=== PATIENT | female | born 1965 | race Two or more races ===

== ENCOUNTER 2017-03-25 19:50 | Emergency (ER) | payer MEDICAID ==
[~2017-03-25] VITALS: Ht 157.5 cm; Wt 92.1 kg
[2017-03-25 21:22] LABS: Basophils # (auto) 0.1 uL; Basophils % (auto) 0.9 % (0.0-2.0); Eosinophils # (auto) 0.1 uL; Hematocrit 41.9 % (36.0-46.0); Hemoglobin 14.2 g/dL (12.2-16.2); Lymphocytes # (auto) 1.5 uL; Mean Corpuscular Hemoglobin 29.7 pg (28.0-32.0); Mean Corpuscular Hgb Conc. 33.9 g/dL (32.0-36.0); Mean Corpuscular Volume 87.6 fL (80.0-100.0); Monocytes # (auto) 0.6 uL; Monocytes % (auto) 5.8 % (0.0-12.0); Neutrophils # (auto) 7.8 uL; Neutrophils % (auto) 77.3 % (37.0-80.0); Nucleated Red Blood Cells % 0.1 %; Platelet Count (auto) 311 10^3/uL (140-450); Red Cell Distribution Width 13.9 % (11.8-14.3); White Blood Cell 10.1 10^3/uL (4.4-10.8)
[2017-03-25 21:49] LABS: BUN/Creatinine Ratio 12.1; Calcium 10.3 mg/dL (8.5-10.1); Potassium 3.8 mmol/L (3.5-5.1)
[2017-03-25 21:52] LABS: Bilirubin, Total 0.2 mg/dL (0.2-1.0); Total Protein 8.5 g/dL (6.4-8.2)
[2017-03-25 23:09] LABS: Urine Bilirubin Negative (Negative); Urine Blood 1+ /uL (Negative); Urine Ca Oxalate Crystal FEW (None Seen); Urine Color Yellow (Yellow); Urine Glucose Normal (Normal); Urine Ketone Negative (Negative); Urine Mucus FEW (None Seen); Urine Nitrite Negative (Negative); Urine RBC 1 /hpf (0 - 4); Urine Squamous Epithelial Cell FEW /hpf (<5); Urine Urobilinogen Normal (Negative); Urine pH 5.5 (5.0-8.0)
[2017-03-26] MEDS ORDERED: ONDANSETRON HCL 4 MG/2 ML VIAL IV ONE (01:15)
[2017-03-26] MEDS ORDERED: MORPHINE SULF INJ 2 MG/ML SYRINGE 1ML IV ONE (01:15)
[2017-03-26 03:47] VITALS: BP 140/90
== END 2017-03-26 04:10 | disposition home or self-care (01) ==
LOC: ER 19:50
DX: S33.5XXA Sprain of ligaments of lumbar spine, initial encounter (principal); M79.1 Myalgia; I10 Essential (primary) hypertension; Z91.041 Radiographic dye allergy status; X58.XXXA Exposure to other specified factors, initial encounter; Y93.89 Activity, other specified; Y99.8 Other external cause status; Y92.89 Other specified places as the place of occurrence of the external cause
CPT/HCPCS: 36415; 74176; 80053; 81001; 81025; 85025; 96374; 96375; 99285; J2270; J2405

== ENCOUNTER 2017-12-15 17:27 | Emergency (ER) | payer MEDICAID ==
[~2017-12-15] VITALS: Ht 154.9 cm; Wt 89.8 kg
[2017-12-15 18:22] LABS: Urine Bacteria FEW /hpf (None Seen); Urine Blood Negative /uL (Negative); Urine Mucus FEW (None Seen); Urine Specific Gravity 1.019 (1.001-1.035); Urine WBC 5 /hpf (0 - 5)
[2017-12-15 19:03] LABS: Basophils # (auto) 0.1 uL; Basophils % (auto) 0.7 % (0.0-2.0); Eosinophils # (auto) 0.2 uL; Eosinophils % (auto) 2.6 % (0.0-7.0); Hematocrit 42.9 % (36.0-46.0); Hemoglobin 14.1 g/dL (12.2-16.2); Lymphocytes # (auto) 2.3 uL; Lymphocytes % (auto) 26.9 % (10.0-50.0); Mean Corpuscular Hemoglobin 29.4 pg (28.0-32.0); Mean Corpuscular Hgb Conc. 32.9 g/dL (32.0-36.0); Mean Corpuscular Volume 89.4 fL (80.0-100.0); Monocytes # (auto) 0.3 uL; Monocytes % (auto) 3.7 % (0.0-12.0); Neutrophils # (auto) 5.7 uL; Neutrophils % (auto) 66.1 % (37.0-80.0); Platelet Count (auto) 332 10^3/uL (140-450); Red Blood Cells 4.79 10^6/uL (4.0-5.20); Red Cell Distribution Width 14.3 % (11.8-14.3); White Blood Cell 8.7 10^3/uL (4.4-10.8)
[2017-12-15 19:22] LABS: INR 0.91 (0.9-1.15); Partial Thromboplastin Time 27.9 sec (23.78-33.04); Prothrombin Time 9.8 sec (9.27-12.13)
[2017-12-15 19:24] LABS: Alanine Aminotransferase 45 U/L (13-56); Albumin 3.9 g/dL (3.4-5.0); Alkaline Phosphatase 137 U/L (45-117); Anion Gap 7 (5-15); Aspartate Aminotransferase 20 U/L (15-37); Bilirubin, Total 0.3 mg/dL (0.2-1.0); Blood Urea Nitrogen 12 mg/dL (7-18); Carbon Dioxide 25 mmol/L (21-32); Chloride 108 mmol/L (98-107); GFR African American 75 mL/min; GFR Non-African American 62 mL/min; Glucose 85 mg/dL (74-106); Magnesium 2.8 mg/dL (1.6-2.6); Sodium 140 mmol/L (136-145); Total Protein 8.3 g/dL (6.4-8.2)
[2017-12-15] MEDS ORDERED: cefTRIAXone SOD 1,000 MG VL IM ONE (21:30)
[2017-12-15 21:50] VITALS: BP 166/78
== END 2017-12-15 21:59 | disposition home or self-care (01) ==
LOC: ER 17:27
DX: N39.0 Urinary tract infection, site not specified (principal); K59.00 Constipation, unspecified; Z91.041 Radiographic dye allergy status
CPT/HCPCS: 36415; 71046; 80053; 81001; 81025; 83735; 83880; 84484; 85025; 85610; 85730; 93005; 96372; 99285; J0696

== ENCOUNTER 2025-04-15 13:28 | Emergency (ER) | payer MEDICAID ==
[~2025-04-15] VITALS: Ht 157.5 cm; Wt 94.8 kg
--- NOTE | 2025-04-15 14:56 | ED.PDOC ---
History of Present Illness HPI Comments 59-year-old female presents to the ER in a wheelchair being pushed by son and daughter with prior medical history of hypertension: Surgical history of right shoulder surgery and a chief complaint of a fall injury. Patient reports on standing on a step stool and as she was trying to get off she twisted her ankle, causing her to fall back and landing on the cervical, thoracic region of the back. Patient is currently complaining of upper back pain and dyspnea. Denies any other symptoms at this time. Denies chills, fever, N/V/D, SOB, CP. No other associated symptoms, modifiers, recent injuries or sick contacts present at this time. Chief Complaint: Fall Injury Time Seen by MD: 14:25 Primary Care Provider: NONE Reviewed Notes: Nurses Notes, Medications, Allergies Allergies: Coded Allergies: Iodine (Verified Adverse Reaction, Severe, 01/27/13) Home Meds No Active Prescriptions or Reported Meds Information Source: Patient, Relative (Child) Mode of Arrival: Wheelchair Severity: Moderate Timing: Minutes Duration: Since onset, Minutes Prehospital treatment: None Past Medical History PAST MEDICAL HISTORY: HTN FLAP LINING BINDER History: No Pertinent FLAP LINING BINDER History Family History Family History: Reviewed,noncontributory to illness, Unknown Social History Smoker: Non-Smoker Alcohol: Denies ETOH Use Drugs: Denies Drug Use Lives In: Home Constitutional: denies: chills, diaphoresis, fatigue, fever, malaise, sweats, weakness, others EENTM: denies: blurred vision, double vision, ear bleeding, ear discharge, ear drainage, ear pain, ear ringing, eye pain, eye redness, hearing loss, mouth pain, mouth swelling, nasal discharge, nose bleeding, nose congestion, nose pain, photophobia, tearing, throat pain, throat swelling, voice changes, others Respiratory: denies: cough, hemoptysis, orthopnea, SOB at rest, shortness of breath, SOB with excertion, stridor, wheezing, others Cardiovascular: denies: chest pain, dizzy spells, diaphoresis, Dyspnea on exertion, edema, irregular heart beat, left arm pain, lightheadedness, palpitations, PND, syncope, others Gastrointestinal: denies: abdomen distended, abdominal pain, blood streaked bowels, constipated, diarrhea, dysphagia, difficulty swallowing, hematemesis, melena, nausea, poor appetite, poor fluid intake, rectal bleeding, rectal pain, vomiting, others Genitourinary: denies: abnormal vagina bleeding, burning, dyspareunia, dysuria, flank pain, frequency, hematuria, incontinence, pain, , vagina discharge, urgency, others Neurological: denies: dizziness, fainting, headache, left sided numbness, left sided weakness, numbness, paresthesia, pre-existing deficit, right sided numbnes s, right sided weakness, seizure, speech problems, tingling, tremors, weakness, others Musculoskeletal: reports: back pain; denies: gout, joint pain, joint swelling, muscle pain, muscle stiffness, neck pain, others Integumetry: denies: bruises, change in color, change in hair/nails, dryness, laceration, lesions, lumps, rash, wounds, others Allergic/Immunocompromised: denies: Difficulty Healing, Frequent Infections, Hives, Itching, others Hematologic/Lymphatic: denies: anemia, blood clots, easy bleeding, easy bruising, swollen glands, others Endocrine: denies: excessive hunger, excessive sweating, excessive thirst, excessive urination, flushing, intolerance to cold, intolerance to heat, unexplained weight gain, unexplained weight loss, others Psychiatric: denies: anxiety, bipolar disorder, depression, hopeless, panic disorder, schizophrenia, sleepless, suicidal, others All Other Systems: Reviewed and Negative Physical Exam General Appearance: Moderate Distress, Normal HEENT: Normal ENT Inspection, Pharynx Normal, TMs Normal Neck: Full Range of Motion, Non-Tender, Normal, Normal Inspection Respiratory: Chest Non-Tender, Lungs Clear, No Accessory Muscle Use, No Respiratory Distress, Normal Breath Sounds Cardiovascular: No Edema, No JVD, No Murmur, No Gallop, Normal Peripheral Pulses, Regular Rate/Rhythm Breast Exam: Deferred Gastrointestinal: No Organomegaly, Non Tender, No Pulsatile Mass, Normal Bowel Sounds, Soft Genitalia: Deferred Pelvic: Deferred Rectal: Deferred Extremities: No calf tenderness, Normal capillary refill, Normal range of motion, Non-tender, No pedal edema Musculoskeletal : Apperance: Normal Neurologic: Alert, marble coper II-XII nml as Tested, No Motor Deficits, Normal Affect, Normal Mood, No Sensory Deficits Cerebellar Function: NOT DONE Reflexes: NOT DONE Skin: Dry, Normal Color, Warm Peripheral Pulses: 3+ Radial (R), 3+ Radial (L) Lymphatic: No Adenopathy Was a procedure done? Was a procedure done?: No Differential Dx Considerations may include: Anemia Electrolyte imbalance X-Ray, Labs, Meds, VS Vital Signs Date Time Temp Pulse Resp B/P (MAP) Pulse Ox O2 Delivery O2 Flow Rate FiO2 04/15/25 13:34 98.6 83 18 213/110 99 98.6 Patient alert. Came in because of a fall landing on her back. Step stool. Vitals stable. Answering all questions. No head injury. Blood pressure elevated. Was given clonidine. X-ray of the spine does not show any acute process. Was given prescription of Motrin. Explained to the patient. Was told to follow up with her primary care physician. Was told to come back if there is any problem. Time of 1ST Reevaluation: 14:55 Reevaluation 1ST: Unchanged Patient Education/Counseling: Diagnosis, Treatment, Prognosis Family Education/Counseling: Diagnosis, Treatment, Prognosis SEPSIS Sepsis Screen Date sepsis recognized/suspect: Apr 15, 2025 Time Sepsis recognized/suspect: 1337 Recent Procedure: No On Antibiotic Therapy: No Respiratory Rate >20: No Heart Rate >90: No Temp<36 C (96.8 F) or >38.3 C: No SBP <90 or MAP <65 mmHG: No New Acute Mental Status Change: No Is the patient on CPAP, BIPAP,: No Physician Orders Cervical Spine 3v (04/15/25 14:28) Spine Thoracic 2view (04/15/25 14:28) Lumbar Spine 3 View (04/15/25 14:28) Vital Signs Date Time Temp Pulse Resp B/P (MAP) Pulse Ox O2 Delivery O2 Flow Rate FiO2 04/15/25 13:34 98.6 83 18 213/110 99 98.6 Departure 1 Departure Time of Disposition: 14:59 Impression: Primary Impression: Hypertensive urgency Disposition: 01 HOME / SELF CARE / HOMELESS Condition: Good e-Prescriptions Ibuprofen Micronized (MOTRIN TABLET) 600 Mg Tb 600 MG PO TID PRN for 5 Days, #15 TAB *Black box warning-NSAIDS can increase risk of MT & hypertension, GI irritation, ulceration, bleed, perferation. Do not use post cardiac surgery. Use short duration/lowest effective dose. Prov: TIGRE PHAM MD 04/15/25 Discharged With: Self Critical Care Note Critical Care Time?: No Stability Stability form required: No Heart Score Heart Score: Heart Score Response (Comments) Value History N/A 0 EKG N/A 0 Age N/A 0 Risk Factors N/A 0 Troponin N/A 0 Total 0 I personally scribed for TIGRE PHAM MD ([email or web address]) on 04/15/25 at 14:56. Electronically submitted by Víctor Magdaleno ([email or web address]). TIGRE PHAM MD Apr 15, 2025 14:56
--- NOTE | 2025-04-15 15:13 | DVH ---
EXAM: XY CERVICAL SPINE 3V HISTORY: fall COMPARISON: None TECHNIQUE: AP, lateral, and odontoid views of the cervical spine were performed. FINDINGS: Normal alignment of the cervical spine visualized to C6. The vertebral body heights are maintained. Alignment is preserved. No abnormal widening of the atlantoaxial interval. No acute fracture. There is multilevel cervical spondylosis with multilevel osteophyte formation and [id number] disc space narrowing at C5-C6. Multilevel facet hypertrophy. No prevertebral soft tissue swelling. The lung apices are clear. Overlying soft tissues are intact. IMPRESSION: 1. Multilevel cervical spondylosis without acute fracture or traumatic malalignment.
--- NOTE | 2025-04-15 15:18 | DVH ---
CLINICAL INDICATION: fall TECHNIQUE: 3 radiographic views of the pick were obtained. COMPARISON: None FINDINGS/IMPRESSION: No compressed vertebra Alignment is normal
--- NOTE | 2025-04-15 15:19 | DVH ---
EXAM: XY LUMBAR SPINE 3 VIEW HISTORY: fall COMPARISON: None TECHNIQUE: AP and lateral views of the lumbar spine and spot lateral of the lumbosacral junction were performed. FINDINGS: There are 5 [id number] lumbar type vertebral bodies. The pedicles are intact. There is bony demineralization. The sacroiliac joints are maintained. The visualized hip joints are maintained. The vertebral body heights are maintained. Alignment is preserved. There are flowing anterior osteophytes in the lower thoracic and lumbar spine concordant with dish. There is multilevel lower thoracic and lumbar spondylosis with multilevel osteophyte formation and multilevel facet hypertrophy. No definite acute fracture. Limited evaluation of the sacrum due to technique. IMPRESSION: 1. Multilevel lower thoracic and lumbar spondylosis. No acute fracture or traumatic malalignment.
[2025-04-15] MEDS ORDERED: IBU600T PO (16:30)
[2025-04-15 16:50] VITALS: BP 196/92; PULSE 76; RESP 16; TEMP 97.8; O2SAT 97
[2025-04-15] MEDS: HYDROcodone-ACET 10/325MG TAB PO ONE (16:59)
== END 2025-04-15 17:56 | disposition home or self-care (01) ==
LOC: ER 13:28
DX: I16.0 Hypertensive urgency (principal); I10 Essential (primary) hypertension; Z88.8 Allergy status to other drugs, medicaments and biological substances
CPT/HCPCS: 72040; 72070; 72100